=== PATIENT | female | born 2000 | race African-American/Black ===

== ENCOUNTER 2023-07-19 07:40 | Inpatient (IN) | payer OTHER ==
[~2023-07-19 07:40] MED LIST: Magnesium 2 GM/50 ML BAG (IN WATER) ONE; Magnesium Sulfate 20 gm/500 ml 20 GM/500 ML BAG ONE; hydrALAZINE 20 MG/ML VIAL ONE
[2023-07-19] MEDS ORDERED: Lorazepam 2 MG/ML VIAL SLOW IVP PRN ×2 (07:50→08:30)
[2023-07-19] MEDS ORDERED: Calcium Gluc 4.6 MEQ/10 ML (100 MG/ML) SLOW IVP PRN ×2 (07:50→08:30)
[2023-07-19] MEDS ORDERED: hydrALAZINE 20 MG/ML VIAL SLOW IVP PRN ×5 (07:50→08:30)
[2023-07-19] MEDS ORDERED: Milk Of Magnesia 30 ML UDCUP PO PRN (07:50)
[2023-07-19] MEDS ORDERED: Lanolin Ointment 7 GM TUBE TOP PRN (07:50)
[2023-07-19] MEDS ORDERED: Ondansetron PF 4 MG/2 ML Vial IVP PRN (07:50)
[2023-07-19] MEDS ORDERED: Bisacodyl 10 MG SUPP PR PRN (07:50)
[2023-07-19] MEDS ORDERED: diphenhydrAMINE 25 MG CAP PO PRN (07:50)
[2023-07-19] MEDS ORDERED: Benzocaine-Menthol 82.5 ML CAN TOP PRN (07:50)
[2023-07-19] MEDS ORDERED: Labetalol HCl 100 MG/20 ML VIAL SLOW IVP PRN ×3 (07:58→08:30)
[2023-07-19] MEDS ORDERED: Magnesium Sulfate 20 gm/500 ml 20 GM/500 ML BAG IVPB SCH (08:00)
[2023-07-19 08:17] LABS: Anion Gap 15 mmol/L (10-20); BUN (Urea Nitrogen) 25 mg/dL (7.0-18.7); Calc. Creatinine Clearance 0 mL/min (70-130); Carbon Dioxide 19 mmol/L (22-29); Chloride 109 mmol/L (98-107); Estimated GFR 101; Potassium 4.4 mmol/L (3.5-5.1); Sodium 139 mmol/L (136-145)
[2023-07-19 08:18] LABS: ALT (SGPT) 34 U/L (8-55); AST (SGOT) 30 U/L (5-34); Alkaline Phosphatase 123 U/L (40-110); Bilirubin, Total 0.2 mg/dL (0.2-1.2); Calcium 9.3 mg/dL (7.6-10.4); Globulin 3.4 g/dL (2.4-3.5); Glucose 96 mg/dL (70-105); Protein, Total 6.4 g/dL (6.0-8.3)
[2023-07-19 08:23] LABS: #Basophils 0.06 10x3/uL (0.0-0.2); #Eosinphils 0.21 10x3/uL (0.0-0.5); #Monocytes 0.57 10x3/uL (0.0-1.1); %Basophils 0.6 % (0.0-2.0); %Eosinophils 2.2 % (0.0-6.0); %Lymphocytes 18.9 % (18.0-47.0); %Monocytes 5.9 % (0.0-10.0); %Neutrophils 70.9 % (40.0-75.0); Hematocrit 38.2 % (34.9-44.5); Hemoglobin 13.1 g/dL (12.0-15.5); Mean Corpuscular HGB CONC 34.3 g/dL (32.0-36.0); Mean Corpuscular Hemoglobin 30.3 pg (27.0-33.0); Mean Corpuscular Volume 88.2 fl (81.6-98.3); Mean Platelet Volume 11.1 fl (7.4-10.4); Platelet Count 210 10x3/uL (150-450); Red Blood Cell (RBC) Count 4.33 10x6/uL (3.90-5.03); White Blood Cell (WBC) Count 9.7 10x3/uL (3.5-10.5)
[2023-07-19] MEDS ORDERED: Lactated Ringer's 1,000 ML IV SCH (08:30)
[2023-07-19] MEDS ORDERED: Promethazine HCl 25 MG/ML VIAL IM PRN (08:30)
[2023-07-19 08:46] LABS: Bilirubin Neg (Negative); Blood, Urine 250 (Negative); Clarity Clear (Clear); Glucose, Urine (Dipstick) Normal (Negative); Ketone, Urine Negative (Negative); Leukocyte 500 (Negative); Nitrite Negative (Negative); Protein, Urine (Dipstick) 100 mg/dl (Neg-Trace); Urobilinogen Normal mg/dL (Less than 2)
[2023-07-19 08:50] LABS: RBC/HPF 0-3 HPF (0-3); Squamous Epithelial 0-3 HPF (0-3); WBC/HPF 0-3 HPF (0-3)
[2023-07-19 08:51] LABS: Bacteria/HPF 1+ HPF (None Seen)
[2023-07-19 08:53] LABS: Creatinine, Urine 34.76 mg/dL (47-110)
[2023-07-19] MEDS ORDERED: Azithromycin 500 MG in Sodium Chloride 0.9% 250 ML 250 ML IVPB SCH ×2 (09:30→13:30)
[2023-07-19] MEDS: Sodium Chloride 0.9% 1,000 ML IV SCH (09:50)
[2023-07-19] MEDS: cefTRIAXone\\ROCEPHIN 2 GM in Sodium Chloride 0.9% 100 ML IVPB SCH (09:50)
[2023-07-19 09:51] VITALS: BMI 35.1
[2023-07-19] MEDS: Azithromycin 500 MG in Sodium Chloride 0.9% 250 ML 250 ML IVPB SCH (13:52)
[2023-07-19] MEDS: Magnesium Sulfate 20 gm/500 ml 20 GM/500 ML BAG IVPB SCH (14:01)
[2023-07-19] MEDS: Prenatal Vitamin 1 TAB PO SCH (14:56)
[2023-07-19] MEDS: Ferrous Sulfate 325 MG TAB PO SCH (14:58)
[2023-07-19] MEDS: Docusate 100 MG CAP PO SCH (14:58)
[2023-07-19] MEDS: Acetaminophen 500 MG TAB PO PRN (23:26)
[2023-07-20 03:56] LABS: #Basophils 0.04 10x3/uL (0.0-0.2); #Eosinphils 0.19 10x3/uL (0.0-0.5); #Monocytes 0.42 10x3/uL (0.0-1.1); #Neutrophils 5.98 10x3/uL (1.5-8.4); %Basophils 0.5 % (0.0-2.0); %Eosinophils 2.2 % (0.0-6.0); %Lymphocytes 20.6 % (18.0-47.0); %Neutrophils 70.6 % (40.0-75.0); Hematocrit 41.2 % (34.9-44.5); Hemoglobin 14.1 g/dL (12.0-15.5); Mean Corpuscular HGB CONC 34.2 g/dL (32.0-36.0); Mean Corpuscular Hemoglobin 30.1 pg (27.0-33.0); Mean Corpuscular Volume 87.8 fl (81.6-98.3); Mean Platelet Volume 10.4 fl (7.4-10.4); Platelet Count 231 10x3/uL (150-450); RBC Distribution Width 13.1 % (11.5-14.5); Red Blood Cell (RBC) Count 4.69 10x6/uL (3.90-5.03); White Blood Cell (WBC) Count 8.5 10x3/uL (3.5-10.5)
[2023-07-20 04:11] LABS: ALT (SGPT) 29 U/L (8-55); AST (SGOT) 21 U/L (5-34); Albumin 2.9 g/dL (3.5-5.0); Alkaline Phosphatase 138 U/L (40-110); Anion Gap 15 mmol/L (10-20); BUN (Urea Nitrogen) 17 mg/dL (7.0-18.7); Bilirubin, Total 0.2 mg/dL (0.2-1.2); Calc. Creatinine Clearance 117 mL/min (70-130); Calcium 7.8 mg/dL (7.8-10.44); Carbon Dioxide 20 mmol/L (22-29); Chloride 108 mmol/L (98-107); Estimated GFR 93; Globulin 3.4 g/dL (2.4-3.5); Glucose 97 mg/dL (70-105); Potassium 4.1 mmol/L (3.5-5.1); Protein, Total 6.3 g/dL (6.0-8.3); Sodium 139 mmol/L (136-145)
[2023-07-20] MEDS: Ibuprofen 800 MG TAB PO SCH (05:12)
[2023-07-20] MEDS: NIFEdipine XL 30 MG ER.TAB PO SCH (12:52)
[2023-07-20] MEDS: Azithromycin 500 MG in Sodium Chloride 0.9% 250 ML 250 ML IVPB SCH (12:52)
[2023-07-21] MEDS: NIFEdipine XL 30 MG ER.TAB PO SCH (09:13)
[2023-07-21] MEDS ORDERED: AMOXicillin 500 MG CAP PO SCH (14:00)
[2023-07-22 08:11] VITALS: BP 125/84; TEMP 98.5
[2023-07-22] MEDS: AMOXicillin 250 MG CAP PO SCH (08:41)
== END 2023-07-22 11:25 | disposition home or self-care (01) | DRG 776 ==
LOC: CSHLD/OP 07:40 → EDSTATUS 07:41 → CSHLD 07:42 → CSHPP 07-20 03:48
PROVIDERS: ADMIT Family Medicine; ATTEND Family Medicine
DX: O14.15 Severe pre-eclampsia, complicating the puerperium (principal); J18.9 Pneumonia, unspecified organism; O99.53 Diseases of the respiratory system complicating the puerperium; O16.5 Unspecified maternal hypertension, complicating the puerperium
CPT/HCPCS: 36415; 71045; 80053; 81001; 82570; 84145; 84156; 85025; 86850; 86900; 86901; 96365; 96375; 99283; J0360; J0456; J0696; J3475; J3490; J7050

== ENCOUNTER 2023-07-22 21:32 | Emergency (ER) | payer OTHER | END 2023-07-22 23:51 | disposition home or self-care (01) | LOC: CSHERS 21:32 | DX: O16.5 Unspecified maternal hypertension, complicating the puerperium (principal) | CPT/HCPCS: 99283 ==

== ENCOUNTER 2023-09-05 11:50 | Emergency (ER) | payer OTHER ==
[2023-09-05] MEDS ORDERED: Ketorolac Tromethamine 30 MG (1 mL) VIAL ONE (13:32)
[2023-09-05] MEDS ORDERED: Boostrix 0.5 ML (Tdap) VIAL (>/=7 yrs of age) ONE (13:32)
[2023-09-05] MEDS ORDERED: Bacitracin 1 PK ONE (13:41)
== END 2023-09-05 13:36 | disposition home or self-care (01) ==
LOC: CSHERS 11:50
DX: S71.131A Puncture wound without foreign body, right thigh, initial encounter (principal); S71.132A Puncture wound without foreign body, left thigh, initial encounter; F17.290 Nicotine dependence, other tobacco product, uncomplicated; Z55.6 Problems related to health literacy; Z23 Encounter for immunization; W54.0XXA Bitten by dog, initial encounter
CPT/HCPCS: 90471; 90715; 96372; J1885

== ENCOUNTER 2023-12-18 17:22 | Emergency (ER) | payer OTHER ==
[2023-12-18] MEDS ORDERED: Ibuprofen 200 MG TAB ONE (19:31)
== END 2023-12-18 20:06 | disposition home or self-care (01) ==
LOC: CSHERS 17:22
DX: S83.004A Unspecified dislocation of right patella, initial encounter (principal); S90.31XA Contusion of right foot, initial encounter; F17.290 Nicotine dependence, other tobacco product, uncomplicated; W19.XXXA Unspecified fall, initial encounter
CPT/HCPCS: 99283

== ENCOUNTER 2024-03-04 09:35 | Emergency (ER) | payer OTHER ==
[2024-03-04] MEDS ORDERED: diphenhydrAMINE 25 MG CAP ONE (10:13)
[2024-03-04] MEDS ORDERED: Dexamethasone 10 MG/ML VIAL ONE (10:13)
== END 2024-03-04 10:32 | disposition home or self-care (01) ==
LOC: CSHERS 09:35
DX: L50.9 Urticaria, unspecified (principal); F17.290 Nicotine dependence, other tobacco product, uncomplicated
CPT/HCPCS: 99283; J1100

== ENCOUNTER 2024-03-09 11:44 | Emergency (ER) | payer OTHER ==
[2024-03-09] MEDS ORDERED: Dexamethasone 4 MG TAB ONE (13:36)
== END 2024-03-09 13:51 | disposition home or self-care (01) ==
LOC: CSHERS 11:44
DX: T78.40XA Allergy, unspecified, initial encounter (principal); L50.9 Urticaria, unspecified; F17.290 Nicotine dependence, other tobacco product, uncomplicated
CPT/HCPCS: 99283; J8540